=== PATIENT | male | born 1940 | race Caucasian/White ===

== ENCOUNTER 2017-07-05 04:45 | Outpatient (CLI) | payer MEDICARE, BC | END 2017-07-05 23:59 | disposition home or self-care (01) | LOC: DIABETIC 04:45 | PROVIDERS: ATTEND Internal Medicine | DX: E11.65 Type 2 diabetes mellitus with hyperglycemia (principal); E78.5 Hyperlipidemia, unspecified; I10 Essential (primary) hypertension; I67.89 Other cerebrovascular disease | CPT/HCPCS: G0108 ==

== ENCOUNTER 2017-08-07 02:34 | Outpatient (CLI) | payer MEDICARE, BC | END 2017-08-07 23:59 | disposition home or self-care (01) | LOC: DIABETIC 02:34 | PROVIDERS: ATTEND Internal Medicine | DX: E11.9 Type 2 diabetes mellitus without complications (principal) | CPT/HCPCS: G0108 ==

== ENCOUNTER 2017-10-29 01:50 | Outpatient (CLI) | payer MEDICARE, BC | END 2017-10-29 23:59 | disposition home or self-care (01) | LOC: DIABETIC 01:50 | PROVIDERS: ATTEND Internal Medicine | DX: E11.65 Type 2 diabetes mellitus with hyperglycemia (principal); I10 Essential (primary) hypertension; E78.5 Hyperlipidemia, unspecified; I67.9 Cerebrovascular disease, unspecified; Z79.82 Long term (current) use of aspirin; Z79.899 Other long term (current) drug therapy | CPT/HCPCS: G0108 ==

== ENCOUNTER 2018-02-27 00:29 | Outpatient (CLI) | payer MEDICARE, BC | END 2018-02-27 23:59 | disposition home or self-care (01) | LOC: DIABETIC 00:29 | PROVIDERS: ATTEND Internal Medicine | DX: E11.65 Type 2 diabetes mellitus with hyperglycemia (principal); I10 Essential (primary) hypertension; E78.5 Hyperlipidemia, unspecified; I67.9 Cerebrovascular disease, unspecified; Z79.82 Long term (current) use of aspirin; Z79.899 Other long term (current) drug therapy; Z79.84 Long term (current) use of oral hypoglycemic drugs | CPT/HCPCS: G0108 ==

== ENCOUNTER 2018-05-28 01:19 | Outpatient (CLI) | payer MEDICARE, BC | END 2018-05-28 23:59 | disposition home or self-care (01) | LOC: DIABETIC 01:19 | PROVIDERS: ATTEND Internal Medicine | DX: E11.65 Type 2 diabetes mellitus with hyperglycemia (principal); Z79.4 Long term (current) use of insulin | CPT/HCPCS: G0108 ==

== ENCOUNTER 2018-09-03 02:36 | Outpatient (CLI) | payer MEDICARE, BC | END 2018-09-03 23:59 | disposition home or self-care (01) | LOC: DIABETIC 02:36 | PROVIDERS: ATTEND Internal Medicine | DX: E11.65 Type 2 diabetes mellitus with hyperglycemia (principal); E78.5 Hyperlipidemia, unspecified; I10 Essential (primary) hypertension; Z79.84 Long term (current) use of oral hypoglycemic drugs; Z79.4 Long term (current) use of insulin | CPT/HCPCS: G0108 ==

== ENCOUNTER 2018-11-10 09:38 | Emergency (ER) | payer MEDICARE, OTHER ==
[~2018-11-10] VITALS: Ht 177.8 cm; Wt 101.0 kg
[2018-11-10 10:51] LABS: BASOPHILS # (AUTO) 0.1 X10'3 (0-0.2); BASOPHILS % (AUTO) 0.8 % (0-1); EOSINOPHILS # (AUTO) 0.4 X10'3 (0-0.9); EOSINOPHILS % (AUTO) 5.1 % (0-6); HEMATOCRIT 41.5 % (42.0-52.0); LYMPHOCYTES # (AUTO) 0.8 X10'3 (1.1-4.8); LYMPHOCYTES % (AUTO) 11.2 % (21-51); MEAN CORPUSCULAR HGB CONC 33.8 g/dL (33.0-36.5); MEAN CORPUSCULAR VOLUME 91.8 FL (78-98); MEAN PLATELET VOLUME 8.2 FL (7.4-10.4); MONOCYTES # (AUTO) 0.6 X10'3 (0-0.9); MONOCYTES % (AUTO) 8.8 % (2-12); NEUTROPHILS # (AUTO) 5.5 X10'3 (1.8-7.7); NEUTROPHILS % (AUTO) 74.1 % (42-75); PLATELET COUNT 217 X10'3 (140-440); RED BLOOD COUNT 4.53 X10'6 (4.70-6.10); RED CELL DISTRIBUTION WIDTH 14.5 % (11.5-14.5); WHITE BLOOD COUNT 7.4 X10'3 (4.5-11.0)
[2018-11-10 11:02] LABS: PARTIAL THROMBOPLASTIN TIME 25 SECONDS (22-32)
[2018-11-10 11:05] LABS: ALANINE AMINOTRANSFERASE 300 U/L (12-78); ALBUMIN 3.3 G/DL (3.4-5.0); ALKALINE PHOSPHATASE 720 IU/L (46-116); ANION GAP 11 (8-16); ASPARTATE AMINO TRANSFERASE 188 U/L (10-37); BILIRUBIN,TOTAL 10.2 MG/DL (0.1-1.0); BLOOD UREA NITROGEN 31 MG/DL (7-18); BUN/CREATININE RATIO 23.8 (5.4-32.0); CALCIUM 9.3 MG/DL (8.5-10.1); CHLORIDE 98 MMOL/L (99-107); GLUCOSE 200 MG/DL (70-104); LIPASE 256 U/L (73-393); SODIUM 135 MMOL/L (135-145); TOTAL CARBON DIOXIDE 26.3 MMOL/L (24-32); eGFR 53 ML/MIN
[2018-11-10 11:06] LABS: ALBUMIN/GLOBULIN RATIO 0.8 (1.1-1.5); POTASSIUM 4.3 MMOL/L (3.5-5.1); TOTAL PROTEIN 7.2 G/DL (6.4-8.2)
[2018-11-10] MEDS ORDERED: ONDA4TAB6 PO (12:06)
[2018-11-10] MEDS ORDERED: HYDR-4353 PO (12:06)
[2018-11-10 12:27] VITALS: BP 149/87
[2018-11-11] MEDS ORDERED: INSU100V9 SQ (07:31)
[2018-11-11] MEDS ORDERED: METO-384 PO (07:32)
[2018-11-11] MEDS ORDERED: METF-438 PO (07:32)
[2018-11-11] MEDS ORDERED: PRAV10TA39 PO (07:33)
[2018-11-11] MEDS ORDERED: SITA50TA PO (07:33)
[2018-11-11] MEDS ORDERED: ENAL20TA PO (07:34)
[2018-11-11] MEDS ORDERED: HYDR12.5 PO (07:35)
[2018-11-11] MEDS ORDERED: ASPI-974 PO (07:35)
== END 2018-11-10 12:29 | disposition home or self-care (01) ==
LOC: ER 09:39
DX: R17 Unspecified jaundice (principal); K86.9 Disease of pancreas, unspecified; M54.5 Low back pain; Z79.899 Other long term (current) drug therapy
CPT/HCPCS: 36415; 80053; 83690; 85025; 85610; 85730; 99283

== ENCOUNTER 2018-11-11 07:03 | Day surgery (SDC) | payer MEDICARE, OTHER ==
[2018-11-11] VITALS (8 sets, daily range): BP systolic 112–139; BP diastolic 62–87
[~2018-11-11] VITALS: Ht 172.7 cm; Wt 103.6 kg
[~2018-11-11 07:03] MED LIST: HYDR-4353 PO; ONDA4TAB6 PO
[2018-11-11] MEDS ORDERED: meperidine/PF 100mg/ml syringe ONE (07:14)
[2018-11-11] MEDS ORDERED: fentaNYL/PF 50MCG/1 ML 2ML syringe ONE (07:15)
[2018-11-11] MEDS ORDERED: diphenhydrAMINE 50 mg/ml inj ONE (07:15)
[2018-11-11] MEDS ORDERED: MIDAZolam 5mg/5ml vial ONE (07:15)
[2018-11-11] MEDS ORDERED: iohexol 300 MG/1 ML 50ml polymer ONE (07:16)
[2018-11-11] MEDS ORDERED: glucagon, human recombinant 1mg kit ONE (07:16)
[2018-11-11] MEDS ORDERED: LIDOcaine Viscous 15ml cup ONE (07:16)
[2018-11-11] MEDS ORDERED: levoFLOXACIN-Levaquin 500mg/D5 100 ML IV ONE (07:16)
[2018-11-11] MEDS ORDERED: INSU100V9 SQ (07:31)
[2018-11-11] MEDS ORDERED: METO-384 PO (07:32)
[2018-11-11] MEDS ORDERED: METF-438 PO (07:32)
[2018-11-11] MEDS ORDERED: PRAV10TA39 PO (07:33)
[2018-11-11] MEDS ORDERED: SITA50TA PO (07:33)
[2018-11-11] MEDS ORDERED: ENAL20TA PO (07:34)
[2018-11-11] MEDS ORDERED: ASPI-974 PO (07:35)
[2018-11-11] MEDS ORDERED: HYDR12.5 PO (07:35)
[2018-11-11] MEDS ORDERED: fentaNYL/PF 50MCG/1 ML 2ML syringe IV PRN (07:50)
[2018-11-11] MEDS ORDERED: MIDAZolam 5mg/5ml vial IV PRN (07:50)
[2018-11-11] MEDS ORDERED: simethicone 40mg/0.6ml oral drops 30ml MC ONE (07:50)
[2018-11-11] MEDS ORDERED: LIDOcaine Viscous 15ml cup PO ONE (07:50)
== END 2018-11-11 12:20 | disposition home or self-care (01) ==
LOC: GI LAB 07:03
PROVIDERS: ATTEND Internal Medicine Gastroenterology
DX: C25.3 Malignant neoplasm of pancreatic duct (principal); M54.9 Dorsalgia, unspecified
CPT/HCPCS: 43261; 82948; 99152; 99153; C1769; J1200; J1610; J1956; J2175; J2250; J3010; J7040; Q9967; 88108; A4620